=== PATIENT | female | born 1945 | race Hispanic/Latino ===

== ENCOUNTER 2019-06-25 08:56 | Observation (INO) | payer MEDICARE ==
[~2019-06-25] VITALS: Ht 162.6 cm; Wt 79.2 kg
--- OUTSIDE RECORDS SUMMARY | 2019-06-25 08:58 | XMS REPORT ---
Author [facility] Address Unknown Phone Unavailable Care Team Providers Care Doll Wig Hackler Name Role Phone Unavailable Unavailable Payers Payer Name Policy Type Policy Number Effective Date Expiration Date Problems This patient has no known problems. Allergies, Adverse Reactions, Alerts Allergy Name Allergy Type Status Severity Reaction(s) Onset Date Inactive Date Treating Clinician Comments No Known Allergies DA Active U 2019-06-03 00:00:00 No Known Allergies DA Active U 2014-09-16 00:00:00 Medications This patient has no known medications. Results Test Description Test Time Test Comments Text Results Atomic Results Result Comments - CT ABD PELVIS W/CONT 2019-06-03 08:28:00 Name: JACEK FORD [facility] : 1945 Age/S: 73 / F Kayleen [facility] Unit #: [id number] Loc: [place] [address] Phys: Rich Diaz MD Acct: [id number] Dis Date: Status: REG ER PHONE #: [phone] Exam Date: 06/03/2019 08 FAX #: [phone] Reason: LLQ pain EXAMS: CPT CODE: [id number] CT ABD PELVIS W/CONT 49996 HISTORY: Left lower quadrant pain and difficulty urinating. COMPARISON: CT scan from December 29, 2018 and June 13, 2016. CT abdomen and pelvis with IV contrast: 100 mL of Isovue-370. Automated exposure control. CT abdomen: The lung bases are clear. The liver is enhancing homogeneously. No discrete parenchymal mass or nodules. Gallbladder is not seen suggesting cholecystectomy with prominent CBD. The liver is measuring 14.5 cm in length. Portal vein and hepatic artery remain widely patent. The spleen is enhancing homogeneously. Stomach is distended incompletely however it is normal in appearance. Pancreas is enhancing homogeneously. Adrenals are normal. Kidneys are free from hydroureteronephrosis. Homogeneous enhancement. Bilateral excretion is noted. Well-opacified abdominal and pelvic vasculature. Mild atherosclerotic change. No pathologic adenopathy. No bowel obstruction or colitis or diverticulitis or enteritis. Constipation. CT PELVIS: Appendix is normal. Pelvic bowel loops are unobstructed. Constipation. Unremarkable urinary bladder distended incompletely. The uterus is within normal limits. Ovaries are poorly visible. No free fluid or free air or abscess. No pelvic pathologic adenopathy. Subcutaneous tissues and the musculature are normal in appearance. No lytic or blastic lesions are noted within the bony skeleton. IMPRESSION: No acute intra-abdominal or intrapelvic pathology. PAGE 1 Signed Report (CONTINUED) Name: RADHA FORDRIA [facility] : 1945 Age/S: 73 / F [address] [facility] Unit #: [id number] Loc: [place] [address] Phys: Rich Diaz MD Acct: [id number] Dis Date: Status: REG ER PHONE #: [phone] Exam Date: 06/03/2019812 FAX #: [phone] Reason: LLQ pain EXAMS: CPT CODE: [id number] CT ABD PELVIS W/CONT 56477 <Continued> at 0828 Reported and signed by: Cal Howard M.D. CC: Rich Diaz MD Technologist:Armani Love RT(R),(MR),(CT) CTDI: DLP: Trnscb Date/Time: 06/03/2019 (827) [email or web address].[email or web address] Orig Print D/T: S: 06/03/2019 (0832) PAGE 2 Signed Report - CT HEAD/BRAIN W/O CONT 2019-06-03 08:19:00 Name: JACEK FORD [facility] : 1945 Age/S: 73 / F [address] [facility] Unit #: [id number] Loc: [place] [address] Phys: Rich Diaz MD Acct: [id number] Dis Date: Status: REG ER PHONE #: [phone] Exam Date: 06/03/2019812 FAX #: [phone] Reason: headache EXAMS: CPT CODE: [id number] CT HEAD/BRAIN W/O CONT 05317 HISTORY: Headache. COMPARISON: None available. CT brain without contrast: Automated exposure control. No acute intracranial bleeds or extra-axial collections are noted. No acute territorial vascular infarction is noted. Extensive scattered calcified granulomas suggestive sequela of prior granulomatous infection. The sulci, gyri, ventricles and subarachnoid spaces and the basilar cisterns are normal for patient's age. No herniation or hydrocephalus or midline shift is noted. Mild periventricular ischemic gliosis is noted. Age-appropriate atrophy is noted as well. Portions of the visualized paranasal sinuses are normal. No obvious bony calvarial defect is noted. IMPRESSION: No acute intracranial bleeds or extra-axial collections. No acute territorial vascular infarction. No herniation or hydrocephalus or midline shift. 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 at 0819 Reported and signed by: Cal Howard M.D. CC: Rich Diaz MD Technologist:Armani Love RT(R),(MR),(CT) CTDI: DLP: Trnscb Date/Time: 06/03/2019 (818) [email or web address] Orig Print D/T: S: 06/03/2019 (821) PAGE 1 Signed Report - XR CHEST 1 V 2019-06-03 07:48:00 FAX: Rich Diaz MD [phone] [place]: B St: REG Name: JACEK FORD [facility] : 1945 Age/S: 73/F Kayleen [facility] Unit #: [id number] Loc: [place] [address] Phys: Rich Diaz MD Acct: [id number] Dis Date: Status: REG ER PHONE #: [phone] Exam Date: 06/03/2019 0740 FAX #: [phone] Reason: cough EXAMS: CPT CODE: [id number] XR CHEST 1 V 55911 HISTORY: cough TECHNIQUE: AP chest x-ray COMPARISON: 09/16/14 FINDINGS: No airspace consolidation or pleural effusion. Normal heart size. Mediastinal silhouette is unremarkable. Cervicothoracic spondylosis. IMPRESSION: No radiographic evidence of acute cardiopulmonary process. at 0748 Reported and signed by: Milvia Jarvis D.O. CC: Rich Diaz MD Technologist: Kathy Lynn RT(R); STUDENT TECHNOLOGIST Trnscrd Date/Time/By: 06/03/2019 (0748) : By: [email or web address] Orig Print D/T: S: 06/03/2019 (0756) PAGE 1 Signed Report BASIC METABOLIC PANEL 2019-06-03 07:47:00 SODIUM (test code=NA) 139 mmol/L 136-145 POTASSIUM (test code=K) 3.9 mmol/L 3.5-5.1 CHLORIDE (test code=CL) 105.0 mmol/L 98-107 CARBON DIOXIDE (test code=CO2) 28.0 mmol/L 21-32 ANION GAP (test code=GAP) 9.9 10-20 GLUCOSE (test code=GLU) 134 mg/dL 74-106 BLOOD UREA NITROGEN (test code=BUN) 15 mg/dL 7-18 GLOMERULAR FILTRATION RATE (test code=GFR) > 60 mL/min >=60 Estimated GFR by using Modified MDRD formula.Chronic kidney disease is defined as either kidney damageor GFR <60 mL/min/1.73 m2 for >3 months. CREATININE (test code=CREAT) 0.90 mg/dL 0.55-1.02 Note change in reference range due to change in reagent. BUN/CREATININE RATIO (test code=BUN/CREA) 16.7 10-20 CALCIUM (test code=CA) 8.8 mg/dL 8.5-10.1 [id number] 07:47:00* Test Item Value Reference Range Comments TROPONIN-I (test code=TROPI) <0.015 ng/mL 0-0.045 BASIC METABOLIC [id number] 07:43:00* Test Item Value Reference Range Comments SODIUM (test code=NA) 139 mmol/L 136-145 POTASSIUM (test code=K) 3.9 mmol/L 3.5-5.1 CHLORIDE (test code=CL) 105.0 mmol/L 98-107 CARBON DIOXIDE (test code=CO2) mmol/L 21-32 ANION GAP (test code=GAP) 10-20 GLUCOSE (test code=GLU) mg/dL 74-106 BLOOD UREA NITROGEN (test code=BUN) mg/dL 7-18 GLOMERULAR FILTRATION RATE (test code=GFR) mL/min >=60 CREATININE (test code=CREAT) mg/dL 0.55-1.02 BUN/CREATININE RATIO (test code=BUN/CREA) 10-20 CALCIUM (test code=CA) 8.8 mg/dL 8.5-10.1 [id number] 07:43:00* Test Item Value Reference Range Comments TROPONIN-I (test code=TROPI) ng/mL 0-0.045 BASIC METABOLIC [id number] 07:35:00* Test Item Value Reference Range Comments SODIUM (test code=NA) 139 mmol/L 136-145 POTASSIUM (test code=K) 3.9 mmol/L 3.5-5.1 CHLORIDE (test code=CL) 105.0 mmol/L 98-107 CARBON DIOXIDE (test code=CO2) mmol/L 21-32 ANION GAP (test code=GAP) 10-20 GLUCOSE (test code=GLU) mg/dL 74-106 BLOOD UREA NITROGEN (test code=BUN) mg/dL 7-18 GLOMERULAR FILTRATION RATE (test code=GFR) mL/min >=60 CREATININE (test code=CREAT) mg/dL 0.55-1.02 BUN/CREATININE RATIO (test code=BUN/CREA) 10-20 CALCIUM (test code=CA) mg/dL 8.5-10.1 [id number] 07:35:00* Test Item Value Reference Range Comments TROPONIN-I (test code=TROPI) ng/mL 0-0.045 CBC W/O [id number] 07:29:00* Test Item Value Reference Range Comments WHITE BLOOD CELL (test code=WBC) 8.9 K/mm3 4.5-12.5 RED BLOOD CELL (test code=RBC) 4.53 mill/mm3 3.7-5.2 HEMOGLOBIN (test code=HGB) 12.5 gram/dL 11.5-15.5 HEMATOCRIT (test code=HCT) 38.2 % 36.0-46.0 MEAN CELL VOLUME (test code=MCV) 84.3 fL 80-98 MEAN CELL HGB (test code=MCH) 27.6 picogram 27.0-33.0 MEAN CELL HGB CONCETRATION (test code=MCHC) 32.7 gram/dL 33.0-36.0 RED CELL DISTRIBUTION WIDTH (test code=RDW) 14.6 % 11.6-16.2 PLATELET COUNT (test code=PLT) 288 K/mm3 150-450 MEAN PLATELET VOLUME (test code=MPV) 11.0 fL 6.7-11.0 CBC W/O [id number] 07:28:00* Test Item Value Reference Range Comments WHITE BLOOD CELL (test code=WBC) K/mm3 4.5-12.5 RED BLOOD CELL (test code=RBC) mill/mm3 3.7-5.2 HEMOGLOBIN (test code=HGB) 12.5 gram/dL 11.5-15.5 HEMATOCRIT (test code=HCT) 38.2 % 36.0-46.0 MEAN CELL VOLUME (test code=MCV) fL 80-98 MEAN CELL HGB (test code=MCH) picogram 27.0-33.0 MEAN CELL HGB CONCETRATION (test code=MCHC) gram/dL 33.0-36.0 RED CELL DISTRIBUTION WIDTH (test code=RDW) % 11.6-16.2 PLATELET COUNT (test code=PLT) K/mm3 150-450 MEAN PLATELET VOLUME (test code=MPV) fL 6.7-11.0 URINALYSIS [id number] 07:05:00* Test Item Value Reference Range Comments UA COLOR (test code=COLU) Dark-Yellow YELLOW UA APPEARANCE (test code=APPU) CLEAR CLEAR UA GLUCOSE DIPSTICK (test code=DGLUU) NEGATIVE mg/dL NEGATIVE UA BILIRUBIN DIPSTICK (test code=BILU) NEGATIVE mg/dL NEGATIVE UA KETONE DIPSTICK (test code=KETU) NEGATIVE mg/dL NEGATIVE UA SPECIFIC GRAVITY (test code=SGU) 1.005 1.001-1.035 UA BLOOD DIPSTICK (test code=DWAYNE) 0.03 mg/dL (Trace) mg/dL NEGATIVE UA PH DIPSTICK (test code=YASMEEN) 6.0 5.0-8.0 UA PROTEIN DIPSTICK (test code=PROU) NEGATIVE mg/dL NEGATIVE UA UROBILINIOGEN DIPSTICK (test code=URO) Normal mg/dL NEGATIVE UA NITRITE DIPSTICK (test code=LELAND) NEGATIVE NEGATIVE UA LEUKOCYTE ESTERASE W REFLEX (test code=LEUUR) NEGATIVE Lucy/uL NEGATIVE UA WBC (test code=WBCU) 0-5 per HPF 0-5 UA RBC (test code=RBCU) 0-2 #/HPF 0-5 UA EPITHELIAL CELLS (test code=EPIU) FEW per HPF FEW UA BACTERIA (test code=BACU) FEW #/HPF NONE Urine Source? Clean Catch- CT ABD PELVIS [id number] 10:53:00 Name: JACEK FORD [facility] : 1945 Age/S: 73 / F [address] [facility] Unit #: [id number] Loc: [place] [address] Phys: Le Alva MD Acct: [id number] Di s Date: Status: REG ER PHONE #: Exam Date: 12/29/2018 1023 FAX #: Reason: Lower abdominal pain EXAMS: CPT CODE: [id number] CT ABD PELVIS W/CONT 68996 HISTORY: Lower abdominal pain. COMPARISON: June 13, 2016. CT of abdomen and pelvis with IV contrast: 100 mL of Isovue-370. Automated exposure cont rol. CT of abdomen: The lung bases are clear. Depend ent changes. The hepatic parenchyma is enhancing homogeneously. The liver is enhancing homogeneously. The stomach distended in completely but it is normal in appearance. Pancreas is enhancing h omogeneously. Adrenals are normal. Kidneys are free from hydrouret eronephrosis. Homogeneous enhancement. Bilateral excretion is noted. No pathologic adenopathy. Well-opacified abdominal and pelvic vas culature. No bowel obstruction or colitis or diverticulitis or ent eritis. Constipation. CT PELVIS: Appendix is n ormal. Pelvic bowel loops are unobstructed. Unremarkable incomplet katharine distended urinary bladder. Unremarkable uterus. Ovaries are poorly vis ible. No free fluid or free air or abscess. No pelvic pathologic adenopath y. Subcutaneous tissues and the musculature are normal in appearan ce. No lytic or blastic lesions are noted within the bony skeleton. DJD. IMPRESSION: Normal appendix without bowel obstr uction or colitis or diverticulitis or enteritis. No h ydroureteronephrosis with homogeneous enhancement. Unremarkable urinary bladder. No free fluid or free air or abscess. PAGE 1 Signed Report (CONTINUED) Name: JACEK FORD [facility] : 1945 Age/S: 73 / F [address] [facility] Unit #: [id number] Loc: [place] [address] Phys: Wicho Alva MD Acct: [id number] Dis Date: Status: REG ER PHONE #: [phone] Exam Date: 019 1023 FAX #: [phone] Reason: Lower abdominal p ain EXAMS: CPT CODE: [id number] CT ABD PELVIS W/CONT 98092 <Continued> at 1053 Reported and signed by: Cal Howard M.D. CC: Wicho Alva MD Technologist:Luanne Madison RT(R)(CT) CTDI: DLP: Trnscb Date/Time: 12/29/2018 (1053) [email or web address] Orig Print D/T: S: 12/29/2018 (1056) CTDI: DLP: PAGE 2 Signed Report BASIC METABOLIC [id number] 10:04:00* Test Item Value Reference Range Comments SODIUM (test code=NA) 138 mmol/L 136-145 POTASSIUM (test code=K) 4.2 mmol/L 3.5-5.1 CHLORIDE (test code=CL) 103.0 mmol/L 98-107 CARBON DIOXIDE (test code=CO2) 28.0 mmol/L 21-32 ANION GAP (test code=GAP) 11.2 10-20 GLUCOSE (test code=GLU) 136 mg/dL 74-106 BLOOD UREA NITROGEN (test code=BUN) 19 mg/dL 7-18 GLOMERULAR FILTRATION RATE (test code=GFR) > 60 mL/min >=60 Estimated GFR by using Modified MDRD formula.Chronic kidney disease is defined as either kidney damageor GFR <60 mL/min/1.73 m2 for >3 months. CREATININE (test code=CREAT) 0.80 mg/dL 0.55-1.02 Note change in reference range due to change in reagent. BUN/CREATININE RATIO (test code=BUN/CREA) 23.8 10-20 CALCIUM (test code=CA) 9.2 mg/dL 8.5-10.1 HEPATIC FUNCTION [id number] 10:04:00* Test Item Value Reference Range Comments TOTAL PROTEIN (test code=PROT) 8.0 gram/dL 6.4-8.2 ALBUMIN (test code=ALB) 3.7 g/dL 3.4-5.0 GLOBULIN (test code=GLOB) 4.3 gram/dL 2.7-4.2 ALBUMIN/GLOBULIN RATIO (test code=A/G) 0.9 0.75-1.50 BILIRUBIN TOTAL (test code=BILT) 0.50 mg/dL 0.0-1.0 BILIRUBIN DIRECT (test code=BILD) 0.12 mg/dL 0.0-0.20 SGOT/AST (test code=AST) 18 IUnit/L 15-37 SGPT/ALT (test code=ALT) 23 IUnit/L 12-78 ALKALINE PHOSPHATASE TOTAL (test code=ALKP) 104 IUnit/L 45-117 Note change in reference range due to change in reagent. [id number] 10:04:00* Test Item Value Reference Range Comments LIPASE (test code=LIP) 126 U/L 73.0-393.0 BASIC METABOLIC [id number] 09:57:00* Test Item Value Reference Range Comments SODIUM (test code=NA) 138 mmol/L 136-145 POTASSIUM (test code=K) 4.2 mmol/L 3.5-5.1 CHLORIDE (test code=CL) 103.0 mmol/L 98-107 CARBON DIOXIDE (test code=CO2) mmol/L 21-32 ANION GAP (test code=GAP) 10-20 GLUCOSE (test code=GLU) mg/dL 74-106 BLOOD UREA NITROGEN (test code=BUN) mg/dL 7-18 GLOMERULAR FILTRATION RATE (test code=GFR) mL/min >=60 CREATININE (test code=CREAT) mg/dL 0.55-1.02 BUN/CREATININE RATIO (test code=BUN/CREA) 10-20 CALCIUM (test code=CA) mg/dL 8.5-10.1 HEPATIC FUNCTION [id number] 09:57:00* Test Item Value Reference Range Comments TOTAL PROTEIN (test code=PROT) gram/dL 6.4-8.2 ALBUMIN (test code=ALB) g/dL 3.4-5.0 GLOBULIN (test code=GLOB) gram/dL 2.7-4.2 ALBUMIN/GLOBULIN RATIO (test code=A/G) 0.75-1.50 BILIRUBIN TOTAL (test code=BILT) mg/dL 0.0-1.0 BILIRUBIN DIRECT (test code=BILD) mg/dL 0.0-0.20 SGOT/AST (test code=AST) IUnit/L 15-37 SGPT/ALT (test code=ALT) IUnit/L 12-78 ALKALINE PHOSPHATASE TOTAL (test code=ALKP) IUnit/L 45-117 [id number] 09:57:00* Test Item Value Reference Range Comments LIPASE (test code=LIP) U/L 73.0-393.0 URINALYSIS [id number] 09:57:00* Test Item Value Reference Range Comments UA COLOR (test code=COLU) YELLOW YELLOW UA APPEARANCE (test code=APPU) CLEAR CLEAR UA GLUCOSE DIPSTICK (test code=DGLUU) NEGATIVE mg/dL NEGATIVE UA BILIRUBIN DIPSTICK (test code=BILU) NEGATIVE mg/dL NEGATIVE UA KETONE DIPSTICK (test code=KETU) NEGATIVE mg/dL NEGATIVE UA SPECIFIC GRAVITY (test code=SGU) 1.016 1.001-1.035 UA BLOOD DIPSTICK (test code=DWAYNE) Negative mg/dL NEGATIVE UA PH DIPSTICK (test code=YASMEEN) 7.0 5.0-8.0 UA PROTEIN DIPSTICK (test code=PROU) NEGATIVE mg/dL NEGATIVE UA UROBILINIOGEN DIPSTICK (test code=URO) NEGATIVE mg/dL NEGATIVE UA NITRITE DIPSTICK (test code=LELAND) NEGATIVE NEGATIVE UA LEUKOCYTE ESTERASE W REFLEX (test code=LEUUR) NEGATIVE Lucy/uL NEGATIVE UA WBC (test code=WBCU) 0-5 per HPF 0-5 UA RBC (test code=RBCU) 0-2 #/HPF 0-5 UA EPITHELIAL CELLS (test code=EPIU) FEW per HPF FEW UA BACTERIA (test code=BACU) FEW #/HPF NONE UA MUCUS (test code=MUCU) FEW #/LPF FEW Urine Source? Clean CatchURINALYSIS [id number] 09:47:00* Test Item Value Reference Range Comments UA COLOR (test code=COLU) YELLOW YELLOW UA APPEARANCE (test code=APPU) CLEAR CLEAR UA GLUCOSE DIPSTICK (test code=DGLUU) NEGATIVE mg/dL NEGATIVE UA BILIRUBIN DIPSTICK (test code=BILU) NEGATIVE mg/dL NEGATIVE UA KETONE DIPSTICK (test code=KETU) NEGATIVE mg/dL NEGATIVE UA SPECIFIC GRAVITY (test code=SGU) 1.016 1.001-1.035 UA BLOOD DIPSTICK (test code=DWAYNE) Negative mg/dL NEGATIVE UA PH DIPSTICK (test code=YASMEEN) 7.0 5.0-8.0 UA PROTEIN DIPSTICK (test code=PROU) NEGATIVE mg/dL NEGATIVE UA UROBILINIOGEN DIPSTICK (test code=URO) NEGATIVE mg/dL NEGATIVE UA NITRITE DIPSTICK (test code=LELAND) NEGATIVE NEGATIVE UA LEUKOCYTE ESTERASE W REFLEX (test code=LEUUR) NEGATIVE Lucy/uL NEGATIVE UA WBC (test code=WBCU) per HPF 0-5 UA RBC (test code=RBCU) per HPF 0-5 UA EPITHELIAL CELLS (test code=EPIU) per HPF Few UA BACTERIA (test code=BACU) per HPF NONE Urine Source? Clean CatchCBC W/O [id number] 09:44:00* Test Item Value Reference Range Comments WHITE BLOOD CELL (test code=WBC) 9.7 K/mm3 4.5-12.5 RED BLOOD CELL (test code=RBC) 4.82 mill/mm3 3.7-5.2 HEMOGLOBIN (test code=HGB) 13.3 gram/dL 11.5-15.5 HEMATOCRIT (test code=HCT) 41.2 % 36.0-46.0 MEAN CELL VOLUME (test code=MCV) 85.5 fL 80-98 MEAN CELL HGB (test code=MCH) 27.6 picogram 27.0-33.0 MEAN CELL HGB CONCETRATION (test code=MCHC) 32.3 gram/dL 33.0-36.0 RED CELL DISTRIBUTION WIDTH (test code=RDW) 14.6 % 11.6-16.2 PLATELET COUNT (test code=PLT) 258 K/mm3 150-450 MEAN PLATELET VOLUME (test code=MPV) 11.3 fL 6.7-11.0 CBC W/O [id number] 09:43:00* Test Item Value Reference Range Comments WHITE BLOOD CELL (test code=WBC) K/mm3 4.5-12.5 RED BLOOD CELL (test code=RBC) mill/mm3 3.7-5.2 HEMOGLOBIN (test code=HGB) 13.3 gram/dL 11.5-15.5 HEMATOCRIT (test code=HCT) 41.2 % 36.0-46.0 MEAN CELL VOLUME (test code=MCV) fL 80-98 MEAN CELL HGB (test code=MCH) picogram 27.0-33.0 MEAN CELL HGB CONCETRATION (test code=MCHC) gram/dL 33.0-36.0 RED CELL DISTRIBUTION WIDTH (test code=RDW) % 11.6-16.2 PLATELET COUNT (test code=PLT) K/mm3 150-450 MEAN PLATELET VOLUME (test code=MPV) fL 6.7-11.0
[2019-06-25] MEDS ORDERED: SODIUM CHLORIDE 0.9% 1000ML 1,000 ML IV STA (09:15)
[2019-06-25] MEDS ORDERED: ONDANSETRON HCL INJ 2MG/ML 2ML 2 MG/ML VIAL IV NR (09:15)
[2019-06-25] MEDS ORDERED: PANTOPRAZOLE 40 MG 10ML VIAL IV NR (09:30)
[2019-06-25 09:42] LABS: BASOPHILS # (AUTO) 0.1 (0.0-0.1); BASOPHILS % 0.5 % (0.0-1.0); EOSINOPHILS # (AUTO) 0.1 (0.0-0.4); EOSINOPHILS % 0.5 % (0.0-6.0); HEMATOCRIT 38.3 % (34.2-44.1); HEMOGLOBIN 12.5 g/dL (12.0-16.0); LYMPHOCYTES # (AUTO) 1.5 (1.0-3.2); LYMPHOCYTES % 14.1 % (18.0-39.1); MEAN CORPUSCULAR HEMOGLOBIN 27.7 pg (28-32); MEAN CORPUSCULAR HGB CONC 32.6 g/dL (31-35); MEAN CORPUSCULAR VOLUME 84.9 fL (81-99); MONOCYTES # (AUTO) 0.9 (0.2-0.8); MONOCYTES % 8.3 % (4.4-11.3); NEUTROPHILS # (AUTO) 8.2 (2.1-6.9); NEUTROPHILS % 76.4 % (38.7-80.0); PLATELET COUNT 256 x10e3/uL (140-360); RED BLOOD COUNT 4.51 x10e6/uL (3.6-5.1); RED CELL DISTRIBUTION WIDTH 14.6 % (11.7-14.4)
[2019-06-25 10:00] LABS: BILIRUBIN,URINE NEGATIVE (NEGATIVE); CLARITY,URINE CLEAR (CLEAR); COLOR,URINE YELLOW (YELLOW); KETONES,URINE NEGATIVE (NEGATIVE); LEUKOCYTE ESTERASE ,URINE NEGATIVE (NEGATIVE); NITRITE,URINE NEGATIVE (NEGATIVE); PROTEIN,URINE DIPSTICK NEGATIVE (NEGATIVE); URINE UROBILINOGEN 0.2 mg/dL (0.2 - 1)
[2019-06-25 10:02] LABS: ALANINE AMINOTRANSFERASE 16 IU/L (0-55); ALBUMIN 3.5 g/dL (3.5-5.0); ALBUMIN/GLOBULIN RATIO 0.8 (0.8-2.0); ALKALINE PHOSPHATASE 80 IU/L (40-150); ANION GAP 15.7 mmol/L (8-16); BLOOD UREA NITROGEN 27 mg/dL (7-26); BUN/CREATININE RATIO 13 (6-25); CALCIUM 9.6 mg/dL (8.4-10.2); CARBON DIOXIDE 25 mmol/L (22-29); CHLORIDE 100 mmol/L (98-107); CREATINE KINASE 64 IU/L (29-168); CREATININE, SERUM 2.12 mg/dL (0.57-1.11); EST GLOMERULAR FILTRATION RATE 23 ML/MIN (60-); GLUCOSE 129 mg/dL (74-118); POTASSIUM 4.7 mmol/L (3.5-5.1); SODIUM 136 mmol/L (136-145)
[2019-06-25 10:33] LABS: BACTERIA,URINE RARE /HPF; EPITHELIAL CELLS,URINE MODERATE /LPF; RBC,URINE 0-5 /HPF (0-5); WBC,URINE (MAN) 0-5 /HPF (0-5)
--- NOTE | 2019-06-25 11:07 | NUR ---
TORI WATSON ([id number]) DR. ALONSO AND MYSELF AT BEDSIDE RE-EVALUATING PATIENT AND DISCUSSING ADMITTING HER TO THE HOSPITAL 2ND TO HER KIDNEY FUNCTION
[2019-06-25] MEDS ORDERED: PANTOPRAZOLE SO40 MG PO (11:14)
[2019-06-25] MEDS ORDERED: LOVASTATIN40 MG PO (11:15)
[2019-06-25] MEDS ORDERED: ONDANSETRON HCL INJ 2MG/ML 2ML 2 MG/ML VIAL IV PRN (11:30)
--- NOTE | 2019-06-25 12:00 | NUR ---
PT RECEIVED FROM ER. ISAC. EDUCATED PT ABOUT FALL PRECAUTIONS. PT VERBALIZED UNDERSTANDING. CALL LIGHT WITH IN EASY REACH. BED IS LOCKED. SIDE RAILS X 2. PT DENIES NEEDS AT THIS TIME.
[2019-06-25 12:13] VITALS: BP 150/77
[2019-06-25 12:30] VITALS: BP 150/77
[2019-06-25] MEDS ORDERED: ASPIRIN EC81 MG PO (12:47)
[2019-06-25] MEDS ORDERED: LOSARTAN POTASS25 MG PO (12:48)
[2019-06-25] MEDS: SODIUM CHLORIDE 0.9% 1000ML 1,000 ML IV SCH ×3 (12:51→21:32)
[2019-06-25] MEDS ORDERED: METFORMIN HCL500 MG PO (12:52)
[2019-06-25 13:00] VITALS: BP 150/77
[2019-06-25 16:00] VITALS: BP 147/79
--- NOTE | 2019-06-25 16:20 | NUR ---
PAGED DR. TAYLOR REGARDING HOME MEDS AND DIET. NO NEW ORDERS RECEIVED.
--- NOTE | 2019-06-25 16:21 | NUR ---
PER DR. TAYLOR HE WILL LOOK IN TO THE MEDS.
--- NOTE | 2019-06-25 19:11 | NUR ---
BEDSIDE SHIFT REPORT GIVEN TO THE BLADE FILER RN. PT DENIED FURTHER NEEDS.
[2019-06-25 19:58] VITALS: BP 139/81
[2019-06-26] VITALS (7 sets, daily range): BP systolic 133–154; BP diastolic 74–85
[2019-06-26] MEDS: SODIUM CHLORIDE 0.9% 1000ML 1,000 ML IV SCH ×2 (03:25→12:24)
[2019-06-26] MEDS ORDERED: PANTOPRAZOLE SOD 40 MG TABEC PO SCH (06:00)
[2019-06-26] MEDS: ACETAMINOPHEN 325 MG TAB PO PRN ×2 (06:19→15:38)
[2019-06-26 06:24] LABS: BASOPHILS % 0.5 % (0.0-1.0); EOSINOPHILS # (AUTO) 0.1 (0.0-0.4); EOSINOPHILS % 1.1 % (0.0-6.0); HEMOGLOBIN 10.7 g/dL (12.0-16.0); LYMPHOCYTES # (AUTO) 1.3 (1.0-3.2); LYMPHOCYTES % 19.6 % (18.0-39.1); MEAN CORPUSCULAR HEMOGLOBIN 27.2 pg (28-32); MEAN CORPUSCULAR HGB CONC 31.5 g/dL (31-35); MEAN CORPUSCULAR VOLUME 86.3 fL (81-99); MONOCYTES # (AUTO) 0.7 (0.2-0.8); MONOCYTES % 10.6 % (4.4-11.3); NEUTROPHILS # (AUTO) 4.5 (2.1-6.9); NEUTROPHILS % 67.9 % (38.7-80.0); PLATELET COUNT 267 x10e3/uL (140-360); RED BLOOD COUNT 3.94 x10e6/uL (3.6-5.1); RED CELL DISTRIBUTION WIDTH 14.7 % (11.7-14.4)
[2019-06-26 06:48] LABS: ALBUMIN 2.7 g/dL (3.5-5.0); ALBUMIN/GLOBULIN RATIO 0.9 (0.8-2.0); ANION GAP 11.8 mmol/L (8-16); CALCIUM 8.4 mg/dL (8.4-10.2); CREATININE, SERUM 1.81 mg/dL (0.57-1.11); POTASSIUM 3.8 mmol/L (3.5-5.1)
--- NOTE | 2019-06-26 07:00 | NUR ---
BEDSIDE SHIFT REPORT RECEIVED FROM THE PROTECTIVE SIGNAL INSTALLER HELPER RN . PT DENIES NEEDS AT THIS TIME.
--- NOTE | 2019-06-26 07:18 | NUR ---
BEDSIDE SHIFT REPORT GIVEN TO ONCOMING NURSE.PT RESTING IN BED WITH NO S/S OF DISTRESS.
[2019-06-26] MEDS ORDERED: ASPIRIN 81 MG ENTERIC COATED PO SCH (09:00)
[2019-06-26] MEDS ORDERED: SIMVASTATIN 20 MG TAB PO SCH (09:00)
--- NOTE | 2019-06-26 09:50 | NUR ---
DR. TAYLOR AT BEDSIDE. CHANGE DIET TO REGULAR PER THE
--- NOTE | 2019-06-26 10:00 | NUR ---
D/C PT IF REGULAR DIET ON LUNCH TOLERATED, PER DR. TYALOR.
--- NOTE | 2019-06-26 11:35 | Discharge Summary ---
FINAL DIAGNOSIS: Acute kidney injury secondary to acute dehydration from acute gastroenteritis. BUN and creatinine of 27 and 2.12, much improved after rehydration. SUMMARY: The patient is a 73-year-old female with mild diabetes, on metformin and hypertension, on losartan, came in with slight elevation of BUN and creatinine due to acute gastroenteritis. The patient was having some abdominal discomfort and some loose stool after she was eating some salad. The patient is stable now, has completely resolved. Symptom has abated. The patient is stable. For now, the patient will stop metformin and losartan. She will continue other home medication. We will give the patient Norvasc 5 mg daily for blood pressure and continue with other medication at home. We will give the patient Zofran as needed for nausea and vomiting. The patient is stable, discharged home today, if she is able to tolerate diet. MD OLESYA Sloan/MELANIE /[id number]
--- NOTE | 2019-06-26 15:45 | NUR ---
PT TOLERATED LUNCH WELL. NO C/O PAIN OR NAUSEA. PT DENIES NEEDS AT THIS TIME.
[2019-06-26] MEDS ORDERED: NORVASC5 MG PO (15:57)
[2019-06-26] MEDS ORDERED: ZOFRAN4 MG PO (15:58)
--- NOTE | 2019-06-26 16:15 | NUR ---
PT DISCHARGED. IV REMOVED. TIP INTACT. DRESSING APPLIED. PT AT ROOM 213 AND PT WANTS TO STAY WITH HER AT RM 213. PT DENIED FURTHER NEEDS.
== END 2019-06-26 16:10 | disposition home or self-care (01) ==
LOC: ER 08:56 → ERHOLD 11:33 → MED/SURG2 12:08
PROVIDERS: ADMIT Internal Medicine; ATTEND Internal Medicine
DX: K52.9 Noninfective gastroenteritis and colitis, unspecified (principal); I10 Essential (primary) hypertension; N17.9 Acute kidney failure, unspecified; E86.0 Dehydration
CPT/HCPCS: 36415 ×2; 80053 ×2; 81001; 82550; 82553; 82948 ×2; 83735; 84484; 85025 ×2; 87086; 93005; 99284; C9113; G0378 ×2; J2405; J7030 ×2; S0164

== ENCOUNTER 2023-03-05 23:12 | Emergency (ER) | payer MEDICARE ==
[~2023-03-05] VITALS: Ht 162.6 cm; Wt 78.9 kg
[~2023-03-05 23:12] MED LIST: ASPIRIN EC81 MG PO; LOSARTAN POTASS25 MG PO; LOVASTATIN40 MG PO; METFORMIN HCL500 MG PO; NORVASC5 MG PO; PANTOPRAZOLE SO40 MG PO; ZOFRAN4 MG PO
[2023-03-05 23:48] LABS: CLARITY,URINE CLEAR (CLEAR); COLOR,URINE YELLOW (YELLOW); KETONES,URINE NEGATIVE (NEGATIVE); LEUKOCYTE ESTERASE ,URINE NEGATIVE (NEGATIVE); NITRITE,URINE NEGATIVE (NEGATIVE); PROTEIN,URINE DIPSTICK NEGATIVE (NEGATIVE); URINE UROBILINOGEN 0.2 mg/dL (0.2 - 1)
[2023-03-05 23:52] LABS: BACTERIA,URINE RARE /HPF; EPITHELIAL CELLS,URINE FEW /LPF; RBC,URINE 0-5 /HPF (0-5); WBC,URINE (MAN) 0-5 /HPF (0-5)
[2023-03-06] MEDS ORDERED: CEFDINIR300 MG PO (00:29)
[2023-03-06 00:51] VITALS: PULSE 70; RESP 17; O2SAT 100
== END 2023-03-06 01:12 | disposition home or self-care (01) ==
LOC: ER 23:18
DX: R35.0 Frequency of micturition (principal); N34.2 Other urethritis; I10 Essential (primary) hypertension; E11.9 Type 2 diabetes mellitus without complications
CPT/HCPCS: 81001; 99283

== ENCOUNTER 2024-06-16 22:18 | Emergency (ER) | payer MEDICARE, OTHER ==
[~2024-06-16] VITALS: Ht 162.6 cm; Wt 78.9 kg
[~2024-06-16 22:18] MED LIST changes: +ALBENDAZOLE200 MG PO; +CEFDINIR300 MG PO; +PREDNISONE20 MG PO
[2024-06-16 22:24] VITALS: PULSE 76; RESP 18; TEMP 97.7
[2024-06-16] MEDS: SODIUM CHLORIDE 0.9% 1000ML 1,000 ML IV STA (22:44)
[2024-06-16 22:54] LABS: BASOPHILS # (AUTO) 0.1 (0.0-0.1); BASOPHILS % 0.5 % (0.0-1.0); EOSINOPHILS # (AUTO) 0.1 (0.0-0.4); EOSINOPHILS % 1.1 % (0.0-6.0); HEMATOCRIT 39.9 % (34.2-44.1); HEMOGLOBIN 12.9 g/dL (12.0-16.0); LYMPHOCYTES # (AUTO) 2.9 (1.0-3.2); LYMPHOCYTES % 28.5 % (18.0-39.1); MEAN CORPUSCULAR HEMOGLOBIN 28.3 pg (28-32); MEAN CORPUSCULAR HGB CONC 32.3 g/dL (31-35); MEAN CORPUSCULAR VOLUME 87.5 fL (81-99); MONOCYTES # (AUTO) 0.9 (0.2-0.8); MONOCYTES % 8.4 % (4.4-11.3); NEUTROPHILS # (AUTO) 6.3 (2.1-6.9); NEUTROPHILS % 61.3 % (38.7-80.0); PLATELET COUNT 237 x10e3/uL (140-360); RED BLOOD COUNT 4.56 x10e6/uL (3.6-5.1); RED CELL DISTRIBUTION WIDTH 14.4 % (11.7-14.4); WHITE BLOOD COUNT 10.22 x10e3/uL (4.8-10.8)
[2024-06-16 23:11] LABS: ALANINE AMINOTRANSFERASE 13 IU/L (0-55); ALBUMIN 3.8 g/dL (3.5-5.0); ALKALINE PHOSPHATASE 123 IU/L (40-150); ANION GAP 15.1 mmol/L (8-16); BILIRUBIN,TOTAL 0.4 mg/dL (0.2-1.2); BLOOD UREA NITROGEN 19 mg/dL (7-26); BUN/CREATININE RATIO 18 (6-25); CALCIUM 9.2 mg/dL (8.4-10.2); CARBON DIOXIDE 22 mmol/L (22-29); CHLORIDE 100 mmol/L (98-107); CREATINE KINASE 63 IU/L (29-168); CREATININE, SERUM 1.06 mg/dL (0.57-1.11); EST GLOMERULAR FILTRATION RATE 53 ML/MIN (>=60); GLUCOSE 141 mg/dL (74-118); LIPASE 43 U/L (8-78); POTASSIUM 4.1 mmol/L (3.5-5.1); SODIUM 133 mmol/L (136-145); TOTAL PROTEIN 7.5 g/dL (6.5-8.1)
[2024-06-16 23:17] LABS: TROPONIN I < 0.001 ng/mL (0-0.300)
[2024-06-16] MEDS ORDERED: IOPAMIDOL 370 MG/ML 100 ML INFUS..BTL INJ ONE (23:24)
[2024-06-16 23:25] LABS: CLARITY,URINE CLEAR (CLEAR); COLOR,URINE YELLOW (YELLOW); LEUKOCYTE ESTERASE ,URINE NEGATIVE (NEGATIVE); PH,URINE 6.5 (5 - 7)
[2024-06-16 23:26] LABS: BILIRUBIN,URINE NEGATIVE (NEGATIVE); GLUCOSE, URINE NEGATIVE (NEGATIVE); KETONES,URINE NEGATIVE (NEGATIVE); NITRITE,URINE NEGATIVE (NEGATIVE); PROTEIN,URINE DIPSTICK NEGATIVE (NEGATIVE); URINE UROBILINOGEN 0.2 mg/dL (0.2 - 1)
[2024-06-16 23:39] LABS: BACTERIA,URINE FEW /HPF; EPITHELIAL CELLS,URINE FEW /LPF; RBC,URINE 0-5 /HPF (0-5); WBC,URINE (MAN) 0-5 /HPF (0-5)
[2024-06-17] MEDS ORDERED: HYDRALAZINE HCL 20 MG/ML VIAL IV STA (00:59)
[2024-06-17] MEDS: ONDANSETRON HCL INJ 2MG/ML 2ML 2 MG/ML VIAL IV STA (01:33)
[2024-06-17 01:35] VITALS: BP 122/56; O2SAT 99
== END 2024-06-17 01:37 | disposition home or self-care (01) ==
LOC: ER 22:22
DX: R10.30 Lower abdominal pain, unspecified (principal); R03.0 Elevated blood-pressure reading, without diagnosis of hypertension; E11.65 Type 2 diabetes mellitus with hyperglycemia; I10 Essential (primary) hypertension; F03.90 Unspecified dementia, unspecified severity, without behavioral disturbance, psychotic disturbance, mood disturbance, and anxiety; R94.31 Abnormal electrocardiogram [ECG] [EKG]
CPT/HCPCS: 36415; 74177; 80053; 81001; 82550; 83690; 84484; 85025; 93005; 99284; J2405; J7030; Q9967